=== PATIENT | female | born 1945 | race Caucasian/White ===

== ENCOUNTER 2017-02-10 16:24 | Emergency (ER) | payer MEDICARE, OTHER ==
[~2017-02-10 16:24] MED LIST: ASAB PO; BUPROBAN150 MG PO; CLIMARA0.1 MG TD; DETROL2 PO; LEXAPRO10 PO; LOP25 PO; METHOC500B PO; MULTIVITAMI1 PO; NORV10 PO; P125 PO; PERCOCET1 TA4 PO; PREV15 PO; PREVAGEN; ZOCOR40 PO
[2017-02-10 17:06] LABS: BASOPHILS 0.4 %; BASOPHILS ABSOLUTE 0.03 10/3/uL (0.0-0.16); EOSINOPHILS 2.7 %; EOSINOPHILS ABSOLUTE 0.19 10/3/uL (0.0-0.53); ER CBC TAT 0 Hrs 10 Mins; HEMATOCRIT 40.4 % (36.0-48.0); IMMATURE GRANULOCYTES 0.3 %; IMMATURE GRANULOCYTES ABSOLUTE 0.02 10/3/uL (0.0-0.11); LYMPHOCYTES 26.4 %; LYMPHOCYTES ABSOLUTE 1.89 10/3/uL (0.67-4.30); MEAN CORPUS HGB CONC 34.7 g/dL (32.0-36.0); MEAN CORPUSCULAR HEMOGLOB 31.6 pg (26.0-34.0); MEAN CORPUSCULAR VOLUME 91.2 fL (80-100); MEAN PLATELET VOLUME 9.1 fL (9.2-13.0); MONOCYTES 7.4 %; MONOCYTES ABSOLUTE 0.53 10/3/uL (0.21-1.20); NEUTROPHILS 62.8 %; PLATELET COUNT 279 10/3/uL (150-400); RBC DISTRIBUTION WIDTH 12.1 % (12.0-16.0); RED CELL COUNT 4.43 10/6/uL (4.0-5.6); WHITE BLOOD CELLS 7.2 10/3/uL (4.5-10.5)
[2017-02-10 17:07] LABS: MANUAL DIFF NO %
[2017-02-10 17:13] LABS: INTERNATIONAL NORMAL RATI 1.1 UNITS (-); PARTIAL THROMBO TIME 26.9 SEC (22.5-37.2); PROTIME (NOT ORD) 14.2 SEC (12.0-14.5)
[2017-02-10 17:23] LABS: A/G RATIO 0.9 (0.7-1.9); ALBUMIN 3.9 G/DL (3.5-5.0); ALKALINE PHOSPHATASE 78 U/L (45-117); CALCIUM, SERUM 9.6 MG/DL (8.5-10.4); CHLORIDE, SERUM 104 MMOL/L (96-112); CO2 (CARBON DIOXIDE) 31 MMOL/L (24-34); CREATININE 0.94 MG/DL (0.55-1.02); GFR AFRICAN AMERICAN 70 ML/MIN (>=60); GFR NON AFRICAN AMERICAN 61 ML/MIN (>=60); GLOBULIN 4.4 G/DL (2.5-4.1); POTASSIUM, SERUM 3.9 MMOL/L (3.5-5.3); SGOT(AST) 27 U/L (5-40); SGPT(ALT) 48 U/L (5-65); SODIUM, SERUM 141 MMOL/L (135-148); TOTAL BILIRUBIN 0.8 MG/DL (0-1.2); TOTAL PROTEIN 8.3 G/DL (6.0-8.5); TROPONIN I <0.02 NG/ML (<0.05)
[2017-02-10 17:24] LABS: BUN (BLOOD UREA NITROGEN) 30 MG/DL (6-23); GLUCOSE, SERUM 84 MG/DL (60-99)
[2017-05-06] MEDS ORDERED: V5 PO (11:46)
[2017-05-06] MEDS ORDERED: LEXAPRO20 PO (11:46)
[2017-05-06] MEDS ORDERED: LIPITOR20 PO (11:47)
[2017-05-06] MEDS ORDERED: DITROXL5 PO (11:47)
[2017-05-06] MEDS ORDERED: LOP50 PO (11:47)
[2017-05-06] MEDS ORDERED: PRIN20 PO (11:57)
== END 2017-02-10 21:00 | disposition home or self-care (01) ==
LOC: ER 16:24
PROVIDERS: Emergency Medicine
DX: I10 Essential (primary) hypertension (principal); R29.90 Unspecified symptoms and signs involving the nervous system; F32.9 Major depressive disorder, single episode, unspecified; Z90.710 Acquired absence of both cervix and uterus; Z90.49 Acquired absence of other specified parts of digestive tract; Z88.0 Allergy status to penicillin; Z88.5 Allergy status to narcotic agent; Z79.899 Other long term (current) drug therapy
CPT/HCPCS: 70450; 71020; 80053; 84484; 85025; 85610; 85730; 93005; 99285; A9270-GY